=== PATIENT | female | born 1965 | race Caucasian/White ===

== ENCOUNTER 2022-11-24 00:18 | Day surgery (SDC) | payer BC, SELFPAY ==
[2022-11-17 09:00] VITALS: BMI 23.0
--- NOTE | 2022-11-23 16:23 | P.HP_ITS ---
History of Present Illness History of Present Illness Consent: Risks, benefits, and alternatives have been discussed and questions answered. Patient agrees to proceed with procedure. Chief complaint: dysphagia Narrative: Chyna Guerrier is a 57 year old female Referred for investigation of dysphagia. She has had several episodes of food getting stuck in the substernal area. She states that she has had esophageal dilatation in the past. Several years ago she had an EGD and biopsies were obtained to rule out Barretts which was negative. Stricture was not present at that Time. [facility] Past Medical History Medical History Alcoholism in recovery Anxiety Current mild episode of major depressive disorder without prior episode DDD (degenerative disc disease), cervical Dysphagia Family history of breast cancer Family hx of colon cancer Feeling of incomplete bladder emptying Gastroesophageal reflux disease Hypertension Tobacco use Family History Family History Father Cerebrovascular accident Mother Family history of malignant neoplasm of breast in first degree relative Social History Social History (Updated 07/07/22 @ 10:43 by Annie Adams [facility]) Smoking packs per day: 0.5 Smoking cigarettes per day: 10.0 Years smoked: 20 Smoking pack-years: 10.00 Smoking status: Current every day smoker Tobacco type: cigarettes Second hand tobacco smoke exposure: Yes Alcohol intake: never Substance use: never Substance use type: does not use Lack of Transportation: No Lack of Food: Never True Current Housing: I Have Housing Concerned About Future Housing: No Difficulty Paying Gas/Electric Bills: No Difficulty Paying for Meds: No Currently Unemployed: No Education: Associate Degree Difficulty w/ Childcare or Family Care: No Living arrangements: with family Spiritual care concerns: No Agree to blood products: Yes Meds Home Medications and Allergies Home Medications Medication Instructions Recorded Confirmed Type escitalopram oxalate 20 mg tablet 20 mg PO DAILY #90 tabs 05/16/21 11/17/22 Rx meloxicam 15 mg tablet 15 mg PO DAILY #90 tabs 05/25/22 11/17/22 Rx trazodone 50 mg tablet 50 mg PO DAILY #90 tabs 07/07/22 11/17/22 Rx lisinopril 20 mg tablet 20 mg PO DAILY #90 tabs 10/09/22 11/17/22 Rx esomeprazole magnesium 20 mg 20 mg PO DAILY 05/16/23 06/15/23 History capsule,delayed release (Nexium) Allergies Allergy/AdvReac Type Severity Reaction Status Date / Time erythromycin base Allergy Unknown Nausea and Verified 11/24/22 06:53 Vomiting midazolam Allergy Unknown Redness of Verified 11/24/22 06:53 Skin methylprednisolone AdvReac Severe Redness of Verified 11/24/22 06:53 Skin oral steroids Allergy Intermediate Flushing Uncoded 11/24/22 06:53 Assessment and Plan Assessment and plan (1) Dysphagia: Code(s): R13.10 - Dysphagia, unspecified Status: Acute Assessment and Plan: EGD with possible biopsy or dilatation or cautery.
[2022-11-24 06:56] VITALS: BP 150/86; PULSE 82; RESP 18; TEMP 36.3; O2SAT 99
[2022-11-24] MEDS: LACTATED RINGERS 1,000 ML 150 ML IV CONT (07:11)
--- NOTE | 2022-11-24 08:02 | WPDANESEPPF ---
Anes - Initial Pre Proc Eval Procedure: Operation Date: 11/24/22 08:15 Proposed Procedures p Esophagogastroduodenoscopy - Davon Yeh MD Date/Time: 11/24/22 08:02 Surgeon: Davon Yeh MD Pre Op Diagnosis: dysphagia Patient Data Age: 57 Gender: F Height: 1.6 m Weight: 71 kg Last Vital Signs Temp 97.4 F L 11/24/22 06:56 Pulse 82 11/24/22 06:56 Resp 18 11/24/22 06:56 BP 150/86 H 11/24/22 06:56 Pulse Ox 99 11/24/22 06:56 O2 Del Method Room Air 11/24/22 06:56 Allergies Allergy/AdvReac Type Severity Reaction Status Date / Time erythromycin base Allergy Unknown Nausea and Verified 11/24/22 06:53 Vomiting midazolam Allergy Unknown Redness of Verified 11/24/22 06:53 Skin methylprednisolone AdvReac Severe Redness of Verified 11/24/22 06:53 Skin oral steroids Allergy Intermediate Flushing Uncoded 11/24/22 06:53 Home Medications Medication Instructions Recorded Confirmed Type escitalopram oxalate 20 mg tablet 20 mg PO DAILY #90 tabs 05/16/21 11/17/22 Rx meloxicam 15 mg tablet 15 mg PO DAILY #90 tabs 05/25/22 11/17/22 Rx trazodone 50 mg tablet 50 mg PO DAILY #90 tabs 07/07/22 11/17/22 Rx lisinopril 20 mg tablet 20 mg PO DAILY #90 tabs 10/09/22 11/17/22 Rx esomeprazole magnesium 20 mg 20 mg PO DAILY 10/18/22 11/17/22 History capsule,delayed release (Nexium) Patient hx anesthesia problems: none Family hx anesthesia problems: none Results Review: All pre-operative results and documents have been reviewed as part of the pre-operative evaluation. PMFSH Past Medical History Medical History Alcoholism in recovery Anxiety Current mild episode of major depressive disorder without prior episode DDD (degenerative disc disease), cervical Dysphagia Family history of breast cancer Family hx of colon cancer Feeling of incomplete bladder emptying Gastroesophageal reflux disease Hypertension Tobacco use Family History Family History Father Cerebrovascular accident Mother Family history of malignant neoplasm of breast in first degree relative Social History Social History (Updated 07/07/22 @ 10:43 by Annie Adams [facility]) Smoking packs per day: 0.5 Smoking cigarettes per day: 10.0 Years smoked: 20 Smoking pack-years: 10.00 Smoking status: Current every day smoker Tobacco type: cigarettes Second hand tobacco smoke exposure: Yes Alcohol intake: never Substance use: never Substance use type: does not use Lack of Transportation: No Lack of Food: Never True Current Housing: I Have Housing Concerned About Future Housing: No Difficulty Paying Gas/Electric Bills: No Difficulty Paying for Meds: No Currently Unemployed: No Education: Associate Degree Difficulty w/ Childcare or Family Care: No Living arrangements: with family Spiritual care concerns: No Agree to blood products: Yes Anes - Eval Final PreProcedure Day of Procedure 11/24/22 08:02 Patient weight: normal Heart: regular rate and rhythm Lungs: clear to auscultation Airway: Mallampati scale class II Neurological: alert and oriented Last oral intake: >/= 8 hours ASA classification: II Emergent: no Anesthetic plan: proceed Anesthesia type and monitoring: general GIVS and standard monitoring Results Review: All pre-operative results and documents have been reviewed as part of the pre-operative evaluation. Informed Consent: The patient's anesthetic plan and its attendant risks and benefits were discussed with the patient/family/POA. Questions were solicited and answers provided to the satisfaction of the patient/family/POA.
[2022-11-24 08:38] VITALS: BP 140/84; PULSE 80; RESP 25; O2SAT 100
[2022-11-24 08:48] VITALS: BP 119/75; PULSE 85; RESP 21; O2SAT 100
[2022-11-24 08:58] VITALS: BP 133/92; PULSE 76; RESP 21; O2SAT 100
== END 2022-11-24 09:02 | disposition home or self-care (01) ==
PROVIDERS: PCP Family Medicine; Visit Provider Internal Medicine Gastroenterology
PROC: 0DJ08ZZ Inspection of Upper Intestinal Tract, Via Natural or Artificial Opening Endoscopic (ICD-10-PCS; CPT 43235; principal; 2022-11-24 08:15)
DX: K22.2 Esophageal obstruction (principal); K21.9 Gastro-esophageal reflux disease without esophagitis; I10 Essential (primary) hypertension; F41.9 Anxiety disorder, unspecified; F32.0 Major depressive disorder, single episode, mild; Z80.0 Family history of malignant neoplasm of digestive organs; F10.21 Alcohol dependence, in remission; F17.210 Nicotine dependence, cigarettes, uncomplicated
CPT/HCPCS: 43249; 88305; C1726; J2704; J7120

== ENCOUNTER 2023-04-28 20:52 | Emergency (ER) | payer BC, SELFPAY ==
--- NOTE | ~2023-04-28 | CT_ITS ---
EXAMINATION: CT abdomen pelvis w con DATE: 04/28/2023 22:11 INDICATION: Abdominal pain and bloating TECHNIQUE: Computed tomography (CT) of the abdomen and pelvis was performed with 100 CC Omnipaque 350 intravenous contrast. Automated exposure control and iterative reconstruction technique were employe d. Exam dose: 576.74 mGy-cm total exam DLP. COMPARISON: None. FINDINGS: Bilateral fat-containing foramen of Bochdalek hernias. Minimal dependent atelectasis of the middle lobe. The lung bases are clear of infiltrate or consolida tion. Normal heart size. No pericardial or pleural effusion. Small sliding hiatal hernia. The liver, spleen, pancreas, gallbladder and bile and pancreatic ducts are unremarkable. Normal morphology of the adrenal glands. Approximately 2.7 x 4 mm nonobstructing mid left renal calculus. No other urinary tract calculus or h ydronephrosis. No renal mass lesion. There is atherosclerotic calcification of the abdominal aorta and iliac arteries. No intraperitoneal or retroperitoneal or pelvic mass lesion or adenopathy or ascites is detected. Small fat-containing umbilical hernia. No evidence of appendicitis. There are fluid distended small bowel segments with occasional small bowel air-fluid levels but no marshall wel obstruction, bowel wall thickening, pneumatosis or intraperitoneal free air. The uterus and adnexal areas and urinary bladder are unremarkable. No suspicious osteolytic or osteoblastic lesions. IMPRESSION: 4 mm nonobstructing left mid renal calculus Small sliding hiatal hernia No bowel obstruction or free air Reviewed, dictated and finalized at [facility] Reviewed, dictated and finalized at [facility] PER MACHINE OPERATOR
[2023-04-28 21:01] VITALS: BP 174/99; PULSE 92; RESP 14; TEMP 36.8; O2SAT 98
[2023-04-28 21:17] LABS: Basophils Absolute Auto 0.1 K/mm3 (0.0-0.1); Basophils Percent Auto 0.4 % (0.2-1.2); Eosinophils Absolute Auto 0.1 K/mm3 (0-0.3); Eosinophils Percent Auto 1.2 % (0-4.4); Hematocrit 41.7 % (37.0-47.0); Hemoglobin 13.7 g/dL (12.0-15.0); Immature Granulocyte Absolute 0.03 K/mm3 (0.00-0.031); Immature Granulocyte Percent A 0.3 % (0-0.5); Lymphocytes Absolute Auto 4.81 K/mm3 (0.9-3.2); Lymphocytes Percent Auto 40.6 % (18.3-44.2); Mean Corpuscular HGB Conc 32.9 g/dl (32-36); Mean Corpuscular Hemoglobin 30.1 pg (26-34); Mean Corpuscular Volume 91.6 fl (80-100); Mean Platelet Volume 8.9 fl (7.4-10.4); Monocytes Absolute Auto 0.7 K/mm3 (0.1-0.6); Monocytes Percent Auto 5.7 % (2.6-8.5); Neutrophils Absolute Auto 6.2 K/mm3 (1.3-6.7); Neutrophils Percent Auto 51.8 % (45.5-73.1); Platelet Count Result 340 k/mm3 (150-375); Red Blood Count 4.55 M/mm3 (4.2-5.4); Red Cell Distribution Width 12.6 % (11.5-14.5); White Blood Count 11.9 K/mm3 (4.5-10.0)
[2023-04-28 21:27] LABS: Alanine Aminotransferase 30 U/L (6-35); Albumin Level 4.5 g/dL (3.5-5.1); Alkaline Phosphatase 61 U/L (38-126); Anion Gap 8 mmol/L (8-16); Aspartate Amino Transferase 32 U/L (14-36); Bilirubin,Total 0.8 mg/dL (0.2-1.3); Blood Urea Nitrogen 16 mg/dL (7-17); Calcium 9.4 mg/dL (8.4-10.2); Carbon Dioxide 24 mmol/L (22-30); Chloride 105 mmol/L (98-107); Estimated CRCL calculation 54 ml/min; Estimated Glomerular Filt Rate > 60; Glucose 125 mg/dL (65-110); Lipase 228 U/L (23-300); Potassium 3.8 mmol/L (3.4-5.0); Sodium 137 mmol/L (137-145)
[2023-04-28 21:35] LABS: Appearance Urine Clear (Clear); Bacteria Urine None Seen /hpf; Bilirubin Urine Negative (Negative); Blood Urine 3+ (Negative); Color Urine Yellow (Yellow); Glucose Urine UA Negative (Negative); Ketones Urine Negative (Negative); Leukocyte Esterase Ur 2+ LEU/UL (Negative); Nitrate Urine Negative (Negative); Non Pathogenic Casts 0-2; Protein Urine Negative (Negative); RBC Urine 51-100 /hpf (0-2); Squamous Epithelial Cell Urine None seen /hpf (Few); Urobilinogen Urine 0.2 mg/dL (<2.0); WBC Urine 21-50 /hpf
[2023-04-28 21:38] LABS: Add Urine Microscopic? YES
[2023-04-28] MEDS: ACETAMINOPHEN 500 MG TABLET 1000 MG PO (21:47)
[2023-04-28] MEDS: FAMOTIDINE 20 MG/2 ML VIAL IV PUSH (21:47)
[2023-04-28] MEDS: MAG HYDROX/AL HYDROX/SIMETH 30 ML UDC PO (21:47)
[2023-04-28] MEDS: SODIUM CHLORIDE 0.9% IV 2,000 ML 999 ML IV CONT (21:47)
[2023-04-28] MEDS: HYDROmorphone HCL INJ (*CRX) 1 MG/ML SYR 0.5 MG IV PUSH (21:48)
--- NOTE | 2023-04-28 22:51 | ED.GENADULT ---
HPI - General Adult General Chief complaint: Abdominal Pain Stated complaint: abdominal pain Time Seen by Provider: 04/28/23 21:01 History of Present Illness HPI narrative: This is a 4-year-old female presenting ED with chief complaint abdominal pain. Patient said it started 3 days ago in her lower back it is now spread to her entire abdomen. It is a sharp pain, primarily in the epigastric area, 7 out 10 intensity getting worse. He has never had pain like this before there are no exacerbating relieving factors. She is nauseous without vomiting. Denies diarrhea. Denies fevers chills body aches, chest pain difficulty breathing or urinary symptoms.. Patient does note that she has multiple GI issues in the past and is scheduled for colonoscopy. Related Data Allergies Allergy/AdvReac Type Severity Reaction Status Date / Time erythromycin base Allergy Unknown Nausea and Verified 04/28/23 20:52 Vomiting midazolam Allergy Unknown Redness of Verified 04/28/23 20:52 Skin methylprednisolone AdvReac Severe Redness of Verified 04/28/23 20:52 Skin PMFSH Past Medical History Medical History Alcoholism in recovery Anxiety Benign esophageal stricture BMI 29.0-29.9,adult Current mild episode of major depressive disorder without prior episode DDD (degenerative disc disease), cervical Dysphagia Family history of breast cancer Family hx of colon cancer Feeling of incomplete bladder emptying Gastroesophageal reflux disease Hypertension Tobacco use Family History Family History Father Cerebrovascular accident Mother Family history of malignant neoplasm of breast in first degree relative Breast cancer Sibling GBS (Guillain [place] syndrome) Social History Social History Smoking packs per day: 0.5 Smoking cigarettes per day: 10.0 Years smoked: 20 Smoking pack-years: 10.00 Smoking status: Current every day smoker Tobacco type: cigarettes Second hand tobacco smoke exposure: Yes Alcohol intake: never Substance use: never Substance use type: does not use Lack of Transportation: No Lack of Food: Never True Current Housing: I Have Housing Concerned About Future Housing: No Difficulty Paying Gas/Electric Bills: No Difficulty Paying for Meds: No Currently Unemployed: No Education: Associate Degree Difficulty w/ Childcare or Family Care: No Living arrangements: with family Occupation/Education: occupation Additional occupation/education comments: clinic [employer] Gender identity (if verbalized by the patient): Female Spiritual care concerns: No Agree to blood products: Yes Exam Narrative: APPEARANCE: No apparent distress. Head: atraumatic. EYES: EOMI, NOSE: Atraumatic NECK: Trachea midline RESPIRATORY: No increased rate of breathing CARDIOVASCULAR: RRR, ABDOMINAL: Tenderness palpation in the epigastric area, cm soft nontender no guarding rebound. No CVA tenderness MUSCULOSKELETAl: No obvious deformities NEURO: Alert. Moving 4/4 extremities SKIN:: Warm, dry. Normal color PSYCHIATRIC: Normal affect Course Vital Signs Vital signs: Vital Signs Temperature 98.2 F 04/28/23 21:01 Pulse Rate 92 04/28/23 21:01 Respiratory Rate 14 04/28/23 21:01 Blood Pressure 174/99 H 04/28/23 21:01 Pulse Oximetry 98 04/28/23 21:01 Oxygen Delivery Room Air 04/28/23 21:01 Temperature 98.2 F 04/28/23 21:01 Pulse Rate 92 04/28/23 21:01 Respiratory Rate 14 04/28/23 21:01 Blood Pressure 174/99 H 04/28/23 21:01 Pulse Oximetry 98 04/28/23 21:01 Oxygen Delivery Room Air 04/28/23 21:01 Medical Decision Making MDM Narrative Medical decision making narrative: -Course: 58-year-old female presenting abdominal pain and bloating. CT scan showed some dilated loops of bowel without evid
[2023-04-28 23:22] VITALS: BP 161/89; PULSE 83; RESP 20; O2SAT 98
== END 2023-04-28 23:28 | disposition home or self-care (01) ==
PROVIDERS: Emergency Provider Emergency Medicine; PCP Family Medicine
DX: K52.9 Noninfective gastroenteritis and colitis, unspecified (principal); N39.0 Urinary tract infection, site not specified; I10 Essential (primary) hypertension; K21.9 Gastro-esophageal reflux disease without esophagitis; F41.9 Anxiety disorder, unspecified; F17.210 Nicotine dependence, cigarettes, uncomplicated
CPT/HCPCS: 36415; 74177; 80053; 81001; 81025; 83690; 85025; 87086; 96361; 96374; 96375; 99284; A9270; J1170; J7030; Q9967

== ENCOUNTER 2023-05-11 01:31 | Day surgery (SDC) | payer BC, SELFPAY ==
[2023-05-01 09:53] VITALS: BMI 24.8
--- NOTE | 2023-05-09 10:14 | SUR.PREOP ---
Patient called regarding upcoming procedure. Reviewed preop instructions, appointment times, and procedure prep.
--- NOTE | 2023-05-10 15:28 | PM.HPGS ---
History of Present Illness History of Present Illness Consent: Risks, benefits, and alternatives have been discussed and questions answered. Patient agrees to proceed with procedure. Chief complaint: diarrhea Narrative: Chyna Guerrier is a 58 year old female with chronic diarrhea. He is also having issues with abdominal pain which is recurrent. It is bilateral in the flank is radiating to the back. She apparently had a recent urinary tract infection. She also described epigastric discomfort worse after eating and history of GERD for which he takes pantoprazole daily. She occasionally takes Imodium if she is going to leave the house. She also has a history of an esophageal stricture for which I had performed esophageal dilatation a few months ago. Review of Systems Review of Systems: All systems reviewed & are unremarkable except as noted in HPI and below PMFSH Past Medical History Medical History Alcoholism in recovery Anxiety Benign esophageal stricture BMI 29.0-29.9,adult Current mild episode of major depressive disorder without prior episode DDD (degenerative disc disease), cervical Dysphagia Family history of breast cancer Family hx of colon cancer Feeling of incomplete bladder emptying Gastroesophageal reflux disease Hypertension Tobacco use Family History Family History Father Cerebrovascular accident Mother Family history of malignant neoplasm of breast in first degree relative Breast cancer Sibling GBS (Guillain [place] syndrome) Social History Social History Smoking packs per day: 0.5 Smoking cigarettes per day: 10.0 Years smoked: 20 Smoking pack-years: 10.00 Smoking status: Current every day smoker Tobacco type: e-cigarettes/vaping Second hand tobacco smoke exposure: Yes Alcohol intake: never Substance use: never Substance use type: does not use Lack of Transportation: No Lack of Food: Never True Current Housing: I Have Housing Concerned About Future Housing: No Difficulty Paying Gas/Electric Bills: No Difficulty Paying for Meds: No Currently Unemployed: No Education: Associate Degree Difficulty w/ Childcare or Family Care: No Living arrangements: with family Occupation/Education: occupation Additional occupation/education comments: [employer] Gender identity (if verbalized by the patient): Female Spiritual care concerns: No Agree to blood products: Yes Meds Home Medications and Allergies Home Medications Medication Instructions Recorded Confirmed Type meloxicam 15 mg tablet 15 mg PO DAILY #90 tabs 05/25/22 05/04/23 Rx lisinopril 20 mg tablet 20 mg PO DAILY #90 tabs 10/09/22 05/04/23 Rx pantoprazole 40 mg tablet,delayed 40 mg PO QAM #30 tabs 11/28/22 05/04/23 Rx release escitalopram oxalate 20 mg tablet 20 mg PO DAILY #90 tabs 01/17/23 05/04/23 Rx trazodone 50 mg tablet 50 mg PO DAILY PRN Insomnia 05/01/23 05/04/23 History Allergies Allergy/AdvReac Type Severity Reaction Status Date / Time erythromycin base Allergy Unknown Nausea and Verified 05/11/23 06:25 Vomiting midazolam Allergy Unknown Redness of Verified 05/11/23 06:25 Skin methylprednisolone AdvReac Severe Redness of Verified 05/11/23 06:25 Skin Exam Resp: Auscultation: clear to auscultation bilaterally Cardio: Rate: regular rate Rhythm: regular rhythm GI: GI Palp: Yes Soft to palpation and No Tenderness to palpation present (GI) Assessment and Plan Assessment and plan (1) Chronic diarrhea: Code(s): K52.9 - Noninfective gastroenteritis and colitis, unspecified Status: Acute Assessment and Plan: Colonoscopy with possible biopsy or polypectomy or cautery or injection of substances.
[2023-05-11 06:26] VITALS: BP 124/77; PULSE 82; RESP 18; TEMP 36.3; O2SAT 99
[2023-05-11] MEDS: LACTATED RINGERS 1,000 ML 150 ML IV CONT (06:41)
--- NOTE | 2023-05-11 07:26 | WPDANESEPPF ---
Anes - Initial Pre Proc Eval Procedure: Operation Date: 05/11/23 07:30 Proposed Procedures p Colonoscopy - Davon Yeh MD Date/Time: 05/11/23 07:26 Surgeon: Davon Yeh MD Pre Op Diagnosis: diarrhea Patient Data Age: 58 Gender: F Height: 1.6 m Weight: 69.9 kg Last Vital Signs Temp 97.4 F L 05/11/23 06:26 Pulse 82 05/11/23 06:26 Resp 18 05/11/23 06:26 BP 124/77 05/11/23 06:26 Pulse Ox 99 05/11/23 06:26 O2 Del Method Room Air 05/11/23 06:26 Allergies Allergy/AdvReac Type Severity Reaction Status Date / Time erythromycin base Allergy Unknown Nausea and Verified 05/11/23 06:25 Vomiting midazolam Allergy Unknown Redness of Verified 05/11/23 06:25 Skin methylprednisolone AdvReac Severe Redness of Verified 05/11/23 06:25 Skin Home Medications Medication Instructions Recorded Confirmed Type meloxicam 15 mg tablet 15 mg PO DAILY #90 tabs 05/25/22 05/04/23 Rx lisinopril 20 mg tablet 20 mg PO DAILY #90 tabs 10/09/22 05/04/23 Rx pantoprazole 40 mg tablet,delayed 40 mg PO QAM #30 tabs 11/28/22 05/04/23 Rx release escitalopram oxalate 20 mg tablet 20 mg PO DAILY #90 tabs 01/17/23 05/04/23 Rx trazodone 50 mg tablet 50 mg PO DAILY PRN Insomnia 05/01/23 05/04/23 History Patient hx anesthesia problems: none Family hx anesthesia problems: none Results Review: All pre-operative results and documents have been reviewed as part of the pre-operative evaluation. [facility] Past Medical History Medical History Alcoholism in recovery Anxiety Benign esophageal stricture BMI 29.0-29.9,adult Current mild episode of major depressive disorder without prior episode DDD (degenerative disc disease), cervical Dysphagia Family history of breast cancer Family hx of colon cancer Feeling of incomplete bladder emptying Gastroesophageal reflux disease Hypertension Tobacco use Family History Family History Father Cerebrovascular accident Mother Family history of malignant neoplasm of breast in first degree relative Breast cancer Sibling GBS (Guillain [place] syndrome) Social History Social History Smoking packs per day: 0.5 Smoking cigarettes per day: 10.0 Years smoked: 20 Smoking pack-years: 10.00 Smoking status: Current every day smoker Tobacco type: e-cigarettes/vaping Second hand tobacco smoke exposure: Yes Alcohol intake: never Substance use: never Substance use type: does not use Lack of Transportation: No Lack of Food: Never True Current Housing: I Have Housing Concerned About Future Housing: No Difficulty Paying Gas/Electric Bills: No Difficulty Paying for Meds: No Currently Unemployed: No Education: Associate Degree Difficulty w/ Childcare or Family Care: No Living arrangements: with family Occupation/Education: occupation 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 Gender identity (if verbalized by the patient): Female Spiritual care concerns: No Agree to blood products: Yes Anes - Eval Final PreProcedure Day of Procedure 05/11/23 07:26 Patient weight: normal Heart: regular rate and rhythm Lungs: clear to auscultation Airway: Mallampati scale class II Neurological: alert and oriented Last oral intake: >/= 8 hours ASA classification: III Emergent: no Anesthetic plan: proceed Anesthesia type and monitoring: general GIVS and standard monitoring Results Review: All pre-operative results and documents have been reviewed as part of the pre-operative evaluation. Informed Consent: The patient's anesthetic plan and its attendant risks and benefits were discussed with the patient/family/POA. Questions were solicited and answers provided to the satisfaction of the patient/family/POA.
[2023-05-11 07:46] VITALS: BP 110/68; PULSE 73; RESP 24; O2SAT 97
[2023-05-11 07:56] VITALS: BP 113/75; PULSE 78; RESP 19; O2SAT 99
[2023-05-11 08:06] VITALS: BP 117/80; PULSE 73; RESP 19; O2SAT 99
== END 2023-05-11 08:13 | disposition home or self-care (01) ==
PROVIDERS: PCP Family Medicine; Visit Provider Internal Medicine Gastroenterology
PROC: 0DJD8ZZ Inspection of Lower Intestinal Tract, Via Natural or Artificial Opening Endoscopic (ICD-10-PCS; CPT 45378; principal; 2023-05-11 07:30)
DX: R19.7 Diarrhea, unspecified (principal); K21.9 Gastro-esophageal reflux disease without esophagitis; I10 Essential (primary) hypertension; F32.0 Major depressive disorder, single episode, mild; F41.9 Anxiety disorder, unspecified; F10.21 Alcohol dependence, in remission; F17.290 Nicotine dependence, other tobacco product, uncomplicated
CPT/HCPCS: 45380; 88305; J2704; J7120

== ENCOUNTER 2024-03-07 09:17 | Outpatient (CLI) | payer BC, SELFPAY ==
--- NOTE | ~2024-03-07 | MR_ITS ---
MRI of the cervical spine Clinical History: Spondylosis Technique: Axial T2-weighted and gradient images, and sagittal T1-weighted, T2-weighted, and STIR donnie ges were acquired. Findings: No fracture or subluxation. There is straightening of the normal cervical lordosis. No susp icious bone marrow signal abnormality seen. At C2-C3, there is minimal disc bulge. No spinal canal stenosis, cord compression, or right neural fo raminal narrowing. There is mild left neural foraminal narrowing. At C3-C4, there is mild disc osteophyte complex. There is mild canal stenosis without carina cord comp ression. There is left neural foraminal narrowing. Probable minimal right neural foraminal narrowing. At C4-C5, there is mild disc osteophyte complex. There is canal stenosis without carina cord compressi on. Probable mild bilateral neural foraminal narrowing. At C5-C6, there is mild disc osteophyte complex. There is canal stenosis without carina cord compressi on. There is bilateral neural foraminal narrowing. At C6-C7, there is no disc bulge or herniation. No spinal canal stenosis, cord compression, or defini te neural foraminal narrowing. No abnormal signal seen in the spinal cord. Paravertebral soft tissues are unremarkable. Impression: Moderate degenerative spondylosis, as above, with multilevel canal stenosis and neural foraminal narr owing. Reviewed, dictated and finalized at [facility]. Impression: Moderate degenerative spondylosis, as above, with multilevel canal stenosis and neural foraminal narrowing.
== END 2024-03-07 09:18 | disposition home or self-care (01) ==
LOC: MICIMG 09:18
PROVIDERS: PCP Physician Assistant Medical; Visit Provider Physician Assistant Medical
DX: M47.812 Spondylosis without myelopathy or radiculopathy, cervical region (principal); M48.02 Spinal stenosis, cervical region
CPT/HCPCS: 72141